=== PATIENT | male | born 1960 | race American Indian/Alaskan Native ===

== ENCOUNTER 2022-04-27 08:50 | Outpatient (CLI) | payer OTHER ==
--- NOTE | 2022-04-27 09:56 | XRay Report ---
Lumbar spine 3 views INDICATION: Back pain FINDINGS: Discogenic degenerative changes seen throughout spine. Facet degenerative change most signi ficant L4-5 and L5-S1. End plate changes are seen throughout. Visualized portions of the upper sacrum appear normal Signer Name: Nik Lazaro MD Signed: 04/27/2022 9:52 AM Workstation Name: [employer]
--- NOTE | 2022-04-27 09:56 | XRay Report ---
XR knee BILAT 1-2V INDICATION / CLINICAL INFORMATION: BILATERAL KNEE PAIN. COMPARISON: None available. FINDINGS: BONES/JOINT(S): No acute fracture or subluxation. Mild bilateral osteoarthritis. No focal bone erosio ns or focal osteopenia to suggest inflammatory arthropathy. SOFT TISSUES: No significant abnormality. ADDITIONAL FINDINGS: None. Signer Name: Fadi Montenegro MD Signed: 04/27/2022 9:52 AM Workstation Name: [email or web address]
== END 2022-04-27 08:51 | disposition home or self-care (01) ==
LOC: XRAY 08:50
PROVIDERS: ATTEND Internal Medicine
DX: M17.0 Bilateral primary osteoarthritis of knee (principal); M47.817 Spondylosis without myelopathy or radiculopathy, lumbosacral region
CPT/HCPCS: 72100